=== PATIENT | male | born 1950 | race Caucasian/White ===

== ENCOUNTER 2025-02-16 18:05 | Emergency (ER) | payer MEDICARE ==
[~2025-02-16] VITALS: Ht 180.3 cm; Wt 101.2 kg
[~2025-02-16 18:05] MED LIST: FLUOXETINE HCL20 MG PO; LOSARTAN-HCTZ1 EAC1 PO; METFORMIN HCL500 MG PO; PRAVASTATIN SOD40 MG PO
[2025-02-16 18:14] VITALS: PULSE 87; RESP 17; TEMP 99.1
[2025-02-16 20:30] LABS: BASOPHILS % 0.1 % (0.0-1.0); EOSINOPHILS % 1.7 % (0.0-6.0); LYMPHOCYTES % 22.9 % (18.0-39.1); MONOCYTES % 9.5 % (4.4-11.3); NEUTROPHILS % 65.6 % (38.7-80.0); RED CELL DISTRIBUTION WIDTH 12.6 % (11.7-14.4)
[2025-02-16 20:49] LABS: EST GLOMERULAR FILTRATION RATE 59.0 ML/MIN (>=60)
[2025-02-16] MEDS ORDERED: AMOX TR-K CLV1 EAC2 PO (21:34)
[2025-02-16 21:56] VITALS: BP 117/75; O2SAT 97
== END 2025-02-16 21:52 | disposition home or self-care (01) ==
LOC: ER 18:26
DX: E11.621 Type 2 diabetes mellitus with foot ulcer (principal); I10 Essential (primary) hypertension; H35.30 Unspecified macular degeneration; G30.9 Alzheimer's disease, unspecified; F02.80 Dementia in other diseases classified elsewhere, unspecified severity, without behavioral disturbance, psychotic disturbance, mood disturbance, and anxiety
CPT/HCPCS: 36415; 80053; 85025; 99284